=== PATIENT | male | born 1990 | race African-American/Black ===

== ENCOUNTER 2024-09-28 14:02 | Emergency (ER) | payer SELFPAY ==
[2024-09-28 15:37] LABS: Influenza A Ag Negative; Influenza B Ag Negative; SARS-CoV-2 Antigen Rapid Res Negative (Negative)
[2024-09-28] MEDS ORDERED: ONDANSETRON 4 MG (ODT) TAB ONE (16:26)
[2024-09-28] MEDS ORDERED: MAGNES/ALUMIN/SIMET 30ML UCUP ONE (16:26)
[2024-09-28] MEDS ORDERED: LIDOCAINE VISCOUS 2% 10ML ORAL SOLN ONE (16:26)
[2024-09-28] MEDS ORDERED: HYDROCODONE/CHLORPHEN 5 ML/OSYR ONE (16:45)
--- NOTE | 2024-09-28 17:34 | RAD REPORT ---
Procedure: Chest Pa And Lat (2 Views) HISTORY: Cough COMPARISON: none FINDINGS: The lungs appear clear of acute infiltrate. No significant pleural effusion noted. Calcified mediastinal lymph nodes could be related to prior gr anulomatous disease. The heart is normal size. IMPRESSION: No acute abnormality is displayed.
--- NOTE | 2024-09-28 17:37 | ER ---
Nurse's Notes [facility] Name: Nadja Lance Age: 33 yrs Sex: Male : 1990 Arrival Date: 09/28/2024 Time: 14:02 Bed DIS1 Private MD: Diagnosis: Cough;Nausea with vomiting, unspecified;Diarrhea, unspecified Presentation: 09/28 14:38 Chief complaint: Patient states: feeling sick X 2 days, cough today , n/v, pain all iw over. Coronavirus screen: Client presents with at least one sign or symptom that may indicate coronavirus-19. Ebola Screen: No symptoms or risks identified at this time. Initial Sepsis Screen: Does the patient meet any 2 criteria? No. Patient's initial sepsis screen is negative. Does the patient have a suspected source of infection? No. Patient's initial sepsis screen is negative. Risk Assessment: Do you want to hurt yourself or someone else? Patient reports no desire to harm self or others. Onset of symptoms was September 26, 2024. 14:38 Method Of Arrival: Ambulatory iw 14:38 Acuity: [facility] 3 iw Historical: - Allergies: 14:38 No Known Allergies; iw - PMHx: 14:38 None; iw Vital Signs: 14:38 BP 163 / 99; Pulse 89; Resp 19; Pulse Ox 98% on R/A; Weight 140.61 kg; Height 6 ft. 2 iw in. ; 14:38 Body Mass Index 39.80 (140.61 kg, 187.96 cm) iw ED Course: 14:06 Patient arrived in ED. al6 14:08 Benoit Iglesias PA is PHCP. cp 14:08 Rodo Kaplan MD is Attending Physician. cp 14:38 Triage completed. iw 14:40 Arm band placed on. iw 17:22 XRAY Chest Pa And Lat (2 Views) In Process Unspecified. EDMS 18:04 No provider procedures requiring assistance completed. Patient did not have IV access aa5 during this emergency room visit. Administered Medications: 16:29 Drug: Ondansetron PO 4 mg PO once Route: PO; aa5 16:46 Follow up: Response: No adverse reaction aa5 16:29 Drug: GI Cocktail without - (Maalox PO 30 ml, Lidocaine Mucous Membrane 2 % 15 aa5 ml) PO once Route: PO; 16:46 Follow up: Response: No adverse reaction aa5 16:46 Drug: Tussionex Pennkinetic ER PO Suspension 5 ml PO once Route: PO; aa5 Outcome: 17:37 Discharge ordered by . cp 18:03 Discharged to home ambulatory, aa5 18:03 Condition: stable 18:03 Discharge instructions given to patient, Instructed on discharge instructions, follow up and referral plans. medication usage, Demonstrated understanding of instructions, follow-up care, medications, Prescriptions given X 2, 18:04 Patient left the ED. aa5 Signatures: Dispatcher [employer] EDMS Claudia Vergara RN RN iw Martine Brito RN RN aa5 Benoit Iglesias PA PA cp Landin, Alissa al6 Corrections: (The following items were deleted from the chart) 14:39 14:38 Pulse 89bpm; Resp 19bpm; Pulse Ox 98% RA; iw iw 14:40 14:38 BP 163 / 99; Pulse 89bpm; Resp 19bpm; Pulse Ox 98% RA; iw iw
--- NOTE | 2024-09-28 17:37 | EDPHYS ---
Physician Documentation [facility] Name: Nadja Lance Age: 33 yrs Sex: Male : 1990 Arrival Date: 09/28/2024 Time: 14:02 Bed DIS1 Private MD: ED Physician Rodo Kaplan HPI: 09/28 14:50 This 33 yrs old Black Male presents to ER via Ambulatory with complaints of Flu cp Symptoms, Nausea/Vomiting/Diarrhea. 14:50 The patient presents to the emergency department with nausea, that is moderate, cp vomiting, that is intermittent, diarrhea, that is intermittent, abdominal pain. 14:50 Onset: The symptoms/episode began/occurred 2 day(s) ago. The patient or guardian cp reports cough, that is intermittent, sore throat. Severity of symptoms: in the emergency department the symptoms are unchanged. Associated signs and symptoms: Pertinent positives: fever, body aches. Historical: - Allergies: 14:38 No Known Allergies; iw - PMHx: 14:38 None; iw ROS: 14:55 Constitutional: Positive for body aches, chills, fever, cp 14:55 Eyes: Negative for injury, pain, redness, and discharge, cp 14:55 ENT: Positive for sore throat, 14:55 Neck: Negative for pain with movement, pain at rest, stiffness, 14:55 Cardiovascular: Negative for chest pain, palpitations, 14:55 Respiratory: Positive for cough, Negative for shortness of breath, wheezing, 14:55 Abdomen/GI: Positive for abdominal pain, nausea, vomiting, and diarrhea, 14:55 Skin: Negative for rash, 14:55 Neuro: Negative for altered mental status, 14:55 All other systems are negative, Exam: 15:00 Constitutional: The patient appears in no acute distress, alert, awake, non-toxic, well cp developed, well nourished, obese, uncomfortable, 15:00 Head/Face: Normocephalic, atraumatic. cp 15:00 Eyes: Periorbital structures: appear normal, Conjunctiva: normal, no exudate, no injection, Sclera: no appreciated abnormality, Lids and lashes: appear normal, bilaterally, 15:00 ENT: External ear(s): are unremarkable, Nose: is normal, Mouth: Lips: moist, Oral mucosa: moist, Posterior pharynx: Airway: no evidence of obstruction, patent, Uvula: midline, erythema, that is mild, exudate, is not appreciated, 15:00 Neck: ROM/movement: is normal, is supple, no meningismus, no nuchal rigidity, 15:00 Chest/axilla: Inspection: normal, 15:00 Cardiovascular: Rate: normal, 15:00 Respiratory: the patient does not display signs of respiratory distress, Respirations: normal, no use of accessory muscles, no retractions, labored breathing, is not present, Breath sounds: are clear throughout, no decreased breath sounds, no stridor, no wheezing, 15:00 Abdomen/GI: Inspection: abdomen appears normal, Palpation: soft, in all quadrants, mild abdominal tenderness, in all quadrants, 15:00 Back: CVA tenderness, is absent, 15:00 Neuro: Orientation: to person, place \T\ time. Mentation: is normal, Motor: moves all fours, strength is normal, Gait: is steady, Vital Signs: 14:38 BP 163 / 99; Pulse 89; Resp 19; Pulse Ox 98% on R/A; Weight 140.61 kg; Height 6 ft. 2 iw in. ; 14:38 Body Mass Index 39.80 (140.61 kg, 187.96 cm) iw MDM: 14:36 Medical Screening Exam initiated cp 16:00 Differential Diagnosis: Bronchitis Influenza Otitis Media Viral Syndrome Pneumonia cp Other influenza, strep throat, tonsillitis. 17:36 Data reviewed: vital signs, nurses notes, lab test result(s), radiologic studies, plain cp films, and as a result, I will discharge patient. 17:36 I considered the following discharge prescriptions or medication management in the emergency department Medications were administered in the Emergency Department. See MAR. Counseling: I had a detailed discussion with the patient and/or guardian regarding the historical points, exam findings, and any diagnostic results supporting the discharge/admit diagnosis, lab results, radiology results, to return to the emergency department if symptoms worsen or persist or if there are any questions or concerns that arise at home. Response to treatment: the patient's symptoms have mildly improved after treatment, nausea improved, no active vomiting observed. will discharge to home for continued monitoring. 09/28 14:43 Order name: Group A Streptococcus Rapid; Complete Time: 17:35 cp 03/20 14:43 Order name: COVID-19 Ag + Flu A+B Ag; Complete Time: 17:35 cp 09/28 15:26 Order name: Throat Culture EDMS 09/28 16:36 Order name: XRAY Chest Pa And Lat (2 Views); Complete Time: 17:35 cp 09/28 17:11 Order name: PO challenge; Complete Time: 18:02 cp Administered Medications: 16:29 Drug: Ondansetron PO 4 mg PO once Route: PO; aa5 16:46 Follow up: Response: No adverse reaction aa5 16:29 Drug: GI Cocktail without - (Maalox PO 30 ml, Lidocaine Mucous Membrane 2 % 15 aa5 ml) PO once Route: PO; 16:46 Follow up: Response: No adverse reaction aa5 16:46 Drug: Tussionex Pennkinetic ER PO Suspension 5 ml PO once Route: PO; aa5 Disposition Summary: 09/28/24 17:37 Discharge Ordered Notes: Location: Home cp Problem: new cp Symptoms: have improved cp Condition: Stable cp Diagnosis - Cough cp - Nausea with vomiting, unspecified cp - Diarrhea, unspecified cp Followup: cp - With: Private Physician - When: 2 - 3 days - Reason: Worsening of condition Discharge Instructions: - Discharge Summary Sheet cp - Diarrhea, Adult cp - Nausea and Vomiting, Adult cp - Cough, Adult cp Forms: - Work release form aa5 - Medication Reconciliation Form cp - Antibiotic Education cp - Prescription Opioid Use cp - Patient Portal Instructions cp - Leadership Thank You Letter cp Prescriptions: - Bromfed DM 2-30-10 mg/5 mL Oral syrup - administer 10 milliliter ORAL route every 6 hours as needed for cold symptoms; cp 240 milliliter; Refills: 0, Product Selection Permitted - ondansetron 8 mg Oral Tablet,disintegrating - take 1 tablet ORAL route every 12 hours; 10 tablet; Refills: 0, Product cp Selection Permitted Signatures: Dispatcher [employer] Claudia Mayer RN RN iw Martine Brito RN RN aa5 Benoit Iglesias PA PA cp Corrections: (The following items were deleted from the chart) 16:36 16:36 Chest Pa And Lat (2 Views)+[email or web address] ordered. EDMS EDMS
[2024-09-28 18:15] VITALS: BP 157/99; TEMP 97.5; O2SAT 97
== END 2024-09-28 18:04 | disposition home or self-care (01) ==
LOC: ER 14:02
DX: R05.9 Cough, unspecified (principal); R11.2 Nausea with vomiting, unspecified; R19.7 Diarrhea, unspecified; Z11.52 Encounter for screening for COVID-19
CPT/HCPCS: 36415; 71046; 87070; 87428; 99283; Q0162